=== PATIENT | female | born 1995 | race Two or more races ===

== ENCOUNTER → 2023-10-15 | Outpatient (CLI) | payer BC | LOC: M PLALAB 13:29 | PROVIDERS: ATTEND Obstetrics & Gynecology | DX: Z34.80 Encounter for supervision of other normal pregnancy, unspecified trimester (principal) ==

== ENCOUNTER → 2023-12-09 | Outpatient (CLI) | payer BC | LOC: M WHC 13:41 | PROVIDERS: ATTEND Obstetrics & Gynecology | DX: Z34.80 Encounter for supervision of other normal pregnancy, unspecified trimester (principal) ==

== ENCOUNTER → 2024-01-28 | Outpatient (CLI) | payer BC ==
[2024-01-28 11:18] LABS: GLUCOSE CHALLENGE TEST 1 HOUR 99 MG/DL (LESS THAN 140)
[2024-01-28 11:19] LABS: HEMATOCRIT 32.9 % (36.0-47.0); HEMOGLOBIN 10.8 g/dl (12.0-15.5); MEAN CORPUSCULAR HEMOGLOBIN 29.8 pg (27.0-33.0); MEAN CORPUSCULAR HGB CONC 32.8 g/dl (32.0-36.5); MEAN CORPUSCULAR VOLUME 90.6 fl (80.0-96.0); PLATELET COUNT, AUTOMATED 152 10^3/uL (150-450); RED BLOOD COUNT 3.63 10^6/uL (4.00-5.40); WHITE BLOOD COUNT 9.5 10^3/uL (4.0-10.0)
[2024-01-28 11:53] LABS: HIV 1&2 SCREEN NEGATIVE (NEGATIVE)
[2024-01-28 12:00] LABS: HEPATITIS C VIRUS ABY INDEX < 0.02 INDEX (<0.8)
[2024-01-28 12:44] LABS: GC DNA AMPLIFICATION NEGATIVE (NEGATIVE)
== END ==
LOC: M PLALAB 07:06
PROVIDERS: ATTEND Obstetrics & Gynecology
DX: Z34.82 Encounter for supervision of other normal pregnancy, second trimester (principal)

== ENCOUNTER → 2024-01-30 | Outpatient (CLI) | payer BC | LOC: M RAD 14:00 | PROVIDERS: ATTEND Obstetrics & Gynecology | DX: Z36.89 Encounter for other specified antenatal screening (principal); Z3A.26 26 weeks gestation of pregnancy ==

== ENCOUNTER → 2024-03-31 | Outpatient (REF) | payer BC | LOC: M PLALAB 09:38 | PROVIDERS: ATTEND Nurse Practitioner Family | DX: Z36.89 Encounter for other specified antenatal screening (principal); Z3A.36 36 weeks gestation of pregnancy ==

== ENCOUNTER → 2024-03-31 | Outpatient (CLI) | payer BC | LOC: M RAD 11:20 | PROVIDERS: ATTEND Nurse Practitioner Family | DX: O26.843 Uterine size-date discrepancy, third trimester (principal) ==

== ENCOUNTER 2024-04-21 07:50 | Inpatient (IN) | payer BC ==
[2024-04-21] VITALS (29 sets, daily range): BP systolic 118–176; BP diastolic 60–108
[~2024-04-21] VITALS: Ht 162.6 cm; Wt 130.0 kg
[2024-04-21] MEDS ORDERED: PRENTAB9 PO (08:10)
[2024-04-21] MEDS ORDERED: HOME MED LIST COMPLETE! XX SCH (08:30)
[2024-04-21 09:30] LABS: HEMOGLOBIN 10.7 g/dl (12.0-15.5); MEAN CORPUSCULAR HEMOGLOBIN 27.6 pg (27.0-33.0); MEAN CORPUSCULAR HGB CONC 32.4 g/dl (32.0-36.5); MEAN CORPUSCULAR VOLUME 85.1 fl (80.0-96.0); PLATELET COUNT, AUTOMATED 139 10^3/uL (150-450); RED BLOOD COUNT 3.88 10^6/uL (4.00-5.40)
[2024-04-21] MEDS ORDERED: OXYTOCIN INJ 10UNITS/ML 1ML VIAL IM PRN (09:50)
[2024-04-21] MEDS ORDERED: LIDOCAINE 1% MDV 20ML VIAL INFIL PRN (09:50)
[2024-04-21] MEDS ORDERED: METHYLERGONOVINE MALEATE 0.2MG/ML 1ML VIAL IM PRN (09:50)
[2024-04-21] MEDS ORDERED: CARBOPROST TROMETHAMINE 250 MCG/ML AMP IM PRN (09:50)
[2024-04-21] MEDS ORDERED: OXYTOCIN DRIP 30 UNITS in IV 1 EA IV PRN (09:50)
[2024-04-21 10:30] LABS: HIV 1&2 SCREEN NEGATIVE (NEGATIVE)
[2024-04-21] MEDS: PENICILLIN G POTASSIUM 5 MU IV 5 MU in DEXTROSE 5% (D5W) MINI-BAG PLU 100 ML IV STA (10:33)
[2024-04-21 10:38] LABS: HEPATITIS C VIRUS ABY INDEX < 0.02 INDEX (<0.8)
[2024-04-21] MEDS: miSOPROStol 50MCG 1/2 TABLET PO ONE (10:45)
[2024-04-21] MEDS: PEN G POT 3,000,000 UNIT/50 ML 3,000,000 UNIT in IV 1 EA IV SCH (15:01)
[2024-04-21] MEDS: LR 1,000 ML IV SCH (15:09)
[2024-04-21] MEDS: OXYTOCIN DRIP 30 UNITS in IV 1 EA IV SCH (15:10)
[2024-04-21] MEDS ORDERED: EPIDURAL/PCA KEYS XX PRN (17:25)
[2024-04-21] MEDS ORDERED: ONDANSETRON 4MG 2ML VIAL IV PRN (17:25)
[2024-04-21] MEDS ORDERED: LR 500 ML IV PRN (17:25)
[2024-04-21] MEDS ORDERED: diphenhydrAMINE 50MG/ML VIAL IV PRN (17:25)
[2024-04-21] MEDS ORDERED: ePHEDrine SULFATE 25 MG/5 ML(5MG/ML) SYRINGE IVP PRN (17:25)
[2024-04-21] MEDS ORDERED: NALOXONE INJ 0.4MG/1ML VIAL IV PRN (17:25)
[2024-04-21] MEDS: FENTANYL/ROPIVACAINE/NACL BAG 100 ML EPIDURAL SCH (18:47)
[2024-04-21] MEDS: OXYTOCIN DRIP 30 UNITS in IV 1 EA IV PRN (22:54)
[2024-04-21] MEDS: TRANEXAMIC ACID INJection 1,000 MG in NS 100 ML IV PRN (23:02)
[2024-04-21] MEDS ORDERED: RHOGAM 300MCG (1500IU) INJ IM SCH (23:15)
[2024-04-21] MEDS ORDERED: DOCUSATE SODIUM 100MG CAPSULE PO PRN (23:15)
[2024-04-21] MEDS ORDERED: METHYLERGONOVINE MALEATE 0.2 MG TAB PO PRN (23:15)
[2024-04-21] MEDS ORDERED: IBUPROFEN 600MG TAB PO PRN (23:15)
[2024-04-21] MEDS ORDERED: DIBUCAINE 1% OINTMENT 30GM TOP PRN (23:15)
[2024-04-22] MEDS: ACETAMINOPHEN 500 MG TAB PO PRN (00:18)
[2024-04-22] MEDS: IBUPROFEN 800 MG TAB PO PRN (00:19)
[2024-04-22 00:54] VITALS: BP 133/60; O2SAT 97
[2024-04-22 06:20] VITALS: BP 118/71; O2SAT 97
[2024-04-22] MEDS: PRENATAL VITAMINS CHEWABLE TABLET PO SCH (08:28)
[2024-04-22] MEDS: ACETAMINOPHEN 325 MG TAB PO PRN (08:29)
[2024-04-22 18:00] VITALS: BP 141/78; O2SAT 98
[2024-04-23 06:00] VITALS: BP 138/82; O2SAT 100
[2024-04-23] MEDS: MEASLES,MUMPS,RUBELLA VACCINE INJ (MMR-II) SC.IMMUN ONE (09:03)
[2024-04-23] MEDS ORDERED: IBUP-1022 PO (10:21)
[2024-04-23] MEDS ORDERED: ACET-683 PO (10:21)
== END 2024-04-23 13:30 | disposition home or self-care (01) | DRG 560 ==
LOC: M LDI 07:50 → M OBS 04-22 00:43
PROVIDERS: ADMIT Advanced Practice Midwife; ATTEND Advanced Practice Midwife
PROC: 10E0XZZ Delivery of Products of Conception, External Approach (ICD-10-PCS; principal; 2024-04-21)
PROC: 0KQM0ZZ Repair Perineum Muscle, Open Approach (ICD-10-PCS; 2024-04-21)
PROC: 3E0P7GC Introduction of Other Therapeutic Substance into Female Reproductive, Via Natural or Artificial Opening (ICD-10-PCS; 2024-04-21)
DX: O36.63X0 Maternal care for excessive fetal growth, third trimester, not applicable or unspecified (principal); O99.824 Streptococcus B carrier state complicating childbirth; Z3A.39 39 weeks gestation of pregnancy; Z88.1 Allergy status to other antibiotic agents; Z88.8 Allergy status to other drugs, medicaments and biological substances; O66.0 Obstructed labor due to shoulder dystocia; O69.81X0 Labor and delivery complicated by cord around neck, without compression, not applicable or unspecified; O70.0 First degree perineal laceration during delivery; Z37.0 Single live birth